=== PATIENT | female | born 1960 | race American Indian/Alaskan Native ===

== ENCOUNTER 2021-05-14 09:39 | Day surgery (SDC) | payer MEDICAID ==
[2021-05-14] VITALS (12 sets, daily range): BP systolic 119–148; BP diastolic 45–92
[~2021-05-14] VITALS: Ht 154.9 cm; Wt 101.3 kg
[2021-05-14] MEDS ORDERED: LORazepam 0.5 MG tablet PO PRN (10:05)
[2021-05-14] MEDS ORDERED: normal saline 1,000 ML IV SCH (10:05)
[2021-05-14] MEDS ORDERED: diphenhydrAMINE 25mg capsule PO PRN (10:05)
[2021-05-14] MEDS ORDERED: nitroGLYCERIN 0.4mg SUBLingual tab SL PRN ×2 (10:05→12:35)
[2021-05-14] MEDS ORDERED: GABA300T25 PO (10:26)
[2021-05-14] MEDS ORDERED: CLON-330 PO (10:26)
[2021-05-14] MEDS ORDERED: LOSA50TA64 PO (10:26)
[2021-05-14] MEDS ORDERED: midazolam 1 mg/ML 2ml injection ONE ×2 (11:12→11:51)
[2021-05-14] MEDS ORDERED: LIDOcaine 1% (10mg/ml)w/preservative injection 20ml MDV ONE (11:12)
[2021-05-14] MEDS ORDERED: fentaNYL/PF 50MCG/1 ML 2ML syringe ONE (11:12)
[2021-05-14] MEDS ORDERED: iohexol 350 MG/ML 50ML vial IV ONE (11:12)
[2021-05-14] MEDS ORDERED: iohexol 350MG/ML 100ml bottle IV ONE (11:12)
[2021-05-14] MEDS ORDERED: HYDROcodone/acetaminophen 10/325mg tab PO PRN (12:35)
[2021-05-14] MEDS ORDERED: OXAZEpam 15mg capsule PO PRN (12:35)
[2021-05-14] MEDS ORDERED: proCHLORperazine 10 MG/2 ml inj IV PRN (12:35)
[2021-05-14] MEDS ORDERED: ondansetron/PF 4mg/2ml inj IV PRN (12:35)
[2021-05-14] MEDS ORDERED: HYDROcodone/acetaminophen 5mg/325mg tablet PO PRN (12:35)
== END 2021-05-14 18:45 | disposition home or self-care (01) ==
LOC: SSTAY O 09:39
PROVIDERS: ATTEND Internal Medicine Cardiovascular Disease
DX: R94.39 Abnormal result of other cardiovascular function study (principal); I20.9 Angina pectoris, unspecified; I10 Essential (primary) hypertension; E78.5 Hyperlipidemia, unspecified; G89.4 Chronic pain syndrome; Z88.8 Allergy status to other drugs, medicaments and biological substances; Z79.899 Other long term (current) drug therapy
CPT/HCPCS: 93005; 93458; 99152; C1760; C1769; J1644; J2001; J2250; J3010; J7030; Q0163; Q9967; A4620; A6258